=== PATIENT | female | born 1970 | race Hispanic/Latino ===

== ENCOUNTER 2020-02-06 09:33 | Emergency (ER) | payer SELFPAY ==
[2020-02-06] MEDS ORDERED: Bacitracin 1 PK ONE (11:18)
[2020-02-06] MEDS ORDERED: HYDROcodone/Acetaminophen 5/325 mg Tablet ONE (11:29)
== END 2020-02-06 11:35 | disposition home or self-care (01) ==
LOC: ERS 09:33
DX: S41.112A Laceration without foreign body of left upper arm, initial encounter (principal); W01.110A Fall on same level from slipping, tripping and stumbling with subsequent striking against sharp glass, initial encounter
CPT/HCPCS: 12002

== ENCOUNTER 2022-12-14 13:09 | Outpatient (CLI) | payer BC | END 2022-12-14 13:10 | disposition home or self-care (01) | LOC: BICMAMMO 13:09 | PROVIDERS: ATTEND Nurse Practitioner Family | DX: Z12.31 Encounter for screening mammogram for malignant neoplasm of breast (principal) | CPT/HCPCS: 77063; 77067 ==

== ENCOUNTER 2024-10-12 14:09 | Outpatient (CLI) | payer BC | END 2024-10-12 14:10 | disposition home or self-care (01) | LOC: BICMAMMO 14:09 | PROVIDERS: ATTEND Family Medicine | DX: Z12.31 Encounter for screening mammogram for malignant neoplasm of breast (principal) | CPT/HCPCS: 77063; 77067 ==